=== PATIENT | female | born 1990 | race Hispanic/Latino ===

== ENCOUNTER 2021-12-05 03:33 | Emergency (ER) | payer OTHER, SELFPAY ==
[2021-12-05] MEDS ORDERED: hydrOXYzine 25 MG TAB ONE (04:10)
== END 2021-12-05 04:17 | disposition home or self-care (01) ==
LOC: NAV ERS 03:33
DX: G47.00 Insomnia, unspecified (principal); F41.9 Anxiety disorder, unspecified
CPT/HCPCS: 99283